=== PATIENT | female | born 1990 | race Caucasian/White ===

== ENCOUNTER 2017-07-21 10:34 | Emergency (ER) | payer SELFPAY ==
[~2017-07-21 10:34] MED LIST: ACET-1966 PO; HYDR-2954 PO; IBU600 PO; IBUP200C71 PO; IBUP600T22 PO; LEV25 PO; LEVO125T77 PO; LEVO200T44 PO; LOR5 PO; OXYC-865 PO; PER PO
--- NOTE | 2017-07-21 10:44 | ER Report ---
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 Patient is a nonsmoker she has no prior cardiac history no history of prior DVT or pulmonary embolism. Patient denies fevers or chills she denies productive cough she denies nausea vomiting or abdominal pain. REVIEW OF SYSTEMS: Constitutional: No fever, no chills. Eyes: No discharge. ENT: No sore throat. Cardiovascular: Chest tightness, no palpitations Respiratory: No cough, no shortness of breath. Gastrointestinal: No abdominal pain, no vomiting. Genitourinary: No hematuria. Musculoskeletal: No back pain. Skin: No rashes. Neurological: No headache. Allergies: Coded Allergies: Sulfa (Sulfonamide Antibiotics) (Verified Allergy, Unknown, 03/24/15) hydrocodone (Verified Allergy, Unknown, 03/24/15) Home Meds Discontinued Reported Medications Levothyroxine Sodium (SYNTHROID) 125 Mcg Tablet, 125 MCG PO QDAY 03/24/15 Past Medical/Surgical History hypothyroidism Hx Smoking: Yes (Endoclear) Smoking Status: Former Smoker Hx Substance Use Disorder: No Hx Alcohol Use: Yes (occ) Constitutional Vital Sign - Last 24 Hours 07/21/17 07/21/17 07/21/17 07/21/17 10:34 10:39 10:44 10:49 Temp 98.7 Pulse ??? 87 91 Resp 22 12 B/P (MAP) 119/94 119/94 (102) Pulse Ox 97 90 O2 Delivery Room Air 07/21/17 07/21/17 07/21/17 07/21/17 11:00 11:04 11:19 11:30 Pulse 58 ??? B/P (MAP) 84/53 (63) 109/40 (63) 07/21/17 07/21/17 07/21/17 07/21/17 11:34 11:49 12:00 12:04 Pulse 61 66 58 Resp 16 11 5 B/P (MAP) 103/67 (79) Pulse Ox 97 91 98 07/21/17 07/21/17 07/21/17 12:17 12:19 12:22 Pulse 65 Resp 18 B/P (MAP) 88/72 (77) 102/84 (90) 92/55 (67) Pulse Ox 98 Physical Exam General Appearance: The patient is alert, has no immediate need for airway protection and no signs of toxicity. Eyes: Pupils equal and round no pallor or injection. ENT, Mouth: Mucous membranes are moist. Respiratory: There are no retractions, lungs are clear to auscultation. Cardiovascular: Regular rate and rhythm. [ ] Gastrointestinal: Abdomen is soft and non tender, no masses, bowel sounds normal. Neurological: Awake alert Skin: Warm and dry, no rashes. Musculoskeletal: Neck is supple non tender. Extremities are nontender, nonswollen and have full range of motion. Medical Decision Making Data Points Result Diagram: 07/21/17 1102 07/21/17 1102 Laboratory Hematology Test 07/21/17 11:02 Red Blood Count 3.89 M/uL (4.17-5.56) Mean Corpuscular Volume 99.4 fL (80.0-96.0) Mean Corpuscular Hemoglobin 34.9 pg (26.0-33.0) Mean Corpuscular Hemoglobin Concent 35.1 g/dL (32.0-36.0) Red Cell Distribution Width 13.3 % (11.5-14.5) Mean Platelet Volume 9.3 fL (7.2-11.1) Neutrophils (%) (Auto) 56.8 % (39.4-72.5) Lymphocytes (%) (Auto) 36.2 % (17.6-49.6) Monocytes (%) (Auto) 5.9 % (4.1-12.4) Eosinophils (%) (Auto) 0.9 % (0.4-6.7) Basophils (%) (Auto) 0.2 % (0.3-1.4) Nucleated RBC Relative Count (auto) 0.1 /100WBC Neutrophils # (Auto) 3.5 K/uL (2.0-7.4) Lymphocytes # (Auto) 2.2 K/uL (1.3-3.6) Monocytes # (Auto) 0.4 K/uL (0.3-1.0) Eosinophils # (Auto) 0.1 K/uL (0.0-0.5) Basophils # (Auto) 0.0 K/uL (0.0-0.1) Nucleated RBC Absolute Count (auto) 0.01 K/uL Prothrombin Time 15.0 seconds (12.0-14.4) Prothromb Time International Ratio 1.17 Activated Partial Thromboplast Time 41 seconds (23-35) D-Dimer Quantitative (PE/DVT) < 0.27 ug/ml (0-0.50) Sodium Level 138 mmol/L (137-145) Potassium Level 3.6 mmol/L (3.5-5.0) Chloride Level 102 mmol/L (98-107) Carbon Dioxide Level 24 mmol/L (22-31) Blood Urea Nitrogen 12 mg/dl (7-18) Creatinine 0.90 mg/dl (0.52-1.04) Glomerular Filtration Rate Calc > 60.0 Random Glucose 79 mg/dl (75-110) Calcium Level 9.7 mg/dl (8.4-10.2) Total Bilirubin 1.2 mg/dl (0.2-1.3) Aspartate Amino Transf (AST/SGOT) 33 U/L (0-35) Alanine Aminotransferase (ALT/SGPT) 43 U/L (0-56) Alkaline Phosphatase 55 U/L (0-126) Troponin I < 0.012 ng/ml Total Protein 8.2 gm/dl (6.3-8.2) Albumin 4.8 g/dl (3.5-5.0) Thyroid Stimulating Hormone (TSH) 196.00 uIU/ml (0.46-4.68) Human Chorionic Gonadotropin, Qual Negative (NEGATIVE) Chemistry Test 07/21/17 11:02 White Blood Count 6.2 k/uL (4.5-11.0) Red Blood Count 3.89 M/uL (4.17-5.56) Hemoglobin 13.5 g/dL (12.0-16.0) Hematocrit 38.6 % (34.0-47.0) Mean Corpuscular Volume 99.4 fL (80.0-96.0) Mean Corpuscular Hemoglobin 34.9 pg (26.0-33.0) Mean Corpuscular Hemoglobin Concent 35.1 g/dL (32.0-36.0) Red Cell Distribution Width 13.3 % (11.5-14.5) Platelet Count 164 K/uL (150-450) Mean Platelet Volume 9.3 fL (7.2-11.1) Neutrophils (%) (Auto) 56.8 % (39.4-72.5) Lymphocytes (%) (Auto) 36.2 % (17.6-49.6) Monocytes (%) (Auto) 5.9 % (4.1-12.4) Eosinophils (%) (Auto) 0.9 % (0.4-6.7) Basophils (%) (Auto) 0.2 % (0.3-1.4) Nucleated RBC Relative Count (auto) 0.1 /100WBC Neutrophils # (Auto) 3.5 K/uL (2.0-7.4) Lymphocytes # (Auto) 2.2 K/uL (1.3-3.6) Monocytes # (Auto) 0.4 K/uL (0.3-1.0) Eosinophils # (Auto) 0.1 K/uL (0.0-0.5) Basophils # (Auto) 0.0 K/uL (0.0-0.1) Nucleated RBC Absolute Count (auto) 0.01 K/uL Prothrombin Time 15.0 seconds (12.0-14.4) Prothromb Time International Ratio 1.17 Activated Partial Thromboplast Time 41 seconds (23-35) D-Dimer Quantitative (PE/DVT) < 0.27 ug/ml (0-0.50) Glomerular Filtration Rate Calc > 60.0 Calcium Level 9.7 mg/dl (8.4-10.2) Total Bilirubin 1.2 mg/dl (0.2-1.3) Aspartate Amino Transf (AST/SGOT) 33 U/L (0-35) Alanine Aminotransferase (ALT/SGPT) 43 U/L (0-56) Alkaline Phosphatase 55 U/L (0-126) Troponin I < 0.012 ng/ml Total Protein 8.2 gm/dl (6.3-8.2) Albumin 4.8 g/dl (3.5-5.0) Thyroid Stimulating Hormone (TSH) 196.00 uIU/ml (0.46-4.68) Human Chorionic Gonadotropin, Qual Negative (NEGATIVE) Coagulation Test 07/21/17 11:02 Prothrombin Time 15.0 seconds Prothromb Time International Ratio 1.17 Activated Partial Thromboplast Time 41 seconds D-Dimer Quantitative (PE/DVT) < 0.27 ug/ml EKG/Imaging EKG Interpretation EKG shows sinus rhythm with ventricular rate of 62 bpm there is some evidence of T-wave inversion in leads II, III, and F aVF there is no prior EKG to compare to. Imaging [place]ACILITY[place] [facility] [place]IENT NAME: Daphnie Bean : 1990 MR: [id number] V: [id number] EXAM DATE: ORDERING PHYSICIAN: NIKKI SMITH TECHNOLOGIST: Location: [facility] Patient: Daphnie Bean : 1990 Visit/Account:[id number] Date of Sevice: 07/21/2017 2 VIEWS CHEST INDICATION: Chest pain and left arm numbness. COMPARISON: None available FINDINGS: Cardiomediastinal silhouette and pulmonary vessels within normal limits. There is no focal infiltrate or lobar consolidation. There is no pneumothorax or pleural effusion. No nodule. Upper abdomen is unremarkable. No acute bony abnormality. IMPRESSION: 1. No acute cardiopulmonary process. Report Dictated By: Krystian Gou at 07/21/2017 11:57 AM Report E-Signed By: Krystian Guo at 07/21/2017 11:58 AM WSN:[id number] ED Course/Re-evaluation ED Course 07/21/2017 11:09:34 am and at this time will be to perform a cardiac workup including d-dimer and troponin. Decision to Disposition Date: Jul 21, 2017 Decision to Disposition Time: 12:12 Depart Departure Latest Vital Signs Vital Signs Date Time Temp Pulse Resp B/P (MAP) Pulse Ox O2 Delivery O2 Flow Rate FiO2 07/21/17 12:22 92/55 (67) 07/21/17 12:19 65 18 98 07/21/17 10:39 98.7 Room Air Impression: Primary Impression: Chest pain Condition: Improved Disposition: HOME OR SELF-CARE Referrals: KRISHAN BROWER (PCP) New Scripts No Active Prescriptions or Reported Meds Patient Instructions: Chest Wall Pain (GEN) Problem Qualifiers Primary Impression: Chest pain Chest pain type: unspecified Qualified Codes: R07.9 - Chest pain, unspecified NIKKI SMITH MD Jul 21, 2017 10:44
--- NOTE | 2017-07-21 11:00 | EKG ---
FACILITY: [facility] - [place] PATIENT NAME: STEPHANIE DHALIWAL : [id number] MR: [id number] V: [id number] EXAM DATE: ORDERING PHYSICIAN: NIKKI SMITH TECHNOLOGIST: Ga Messer Reason : Blood Pressure : / mmHG Vent. Rate : 062 BPM Atrial Rate : 062 BPM P-R Int : 170 ms QRS Dur : 082 ms QT Int : 400 ms P-R-T Axes : 049 058 -63 degrees QTc Int : 406 ms Normal sinus rhythm Much baseline artifact Possible Lateral infarct , age undetermined T wave abnormality, consider inferior ischemia No previous ECGs available Confirmed by KHARI BRAGG ([id number] on 07/21/2017 7:14:30 PM Referred By: Confirmed By:KHARI BRAGG
[2017-07-21 11:12] LABS: PLATELET COUNT, AUTOMATED 164 K/uL (150-450)
[2017-07-21 11:21] LABS: INR 1.17
[2017-07-21] MEDS ORDERED: KETOROLAC 15 MG/ML VIAL IVP ONE (11:30)
--- NOTE | 2017-07-21 12:02 | RADIOLOGY IMAGING REPORT ---
FACILITY: [facility] PATIENT NAME: Daphnie Bean : 1990 MR: [id number] V: [id number] EXAM DATE: ORDERING PHYSICIAN: NIKKI SMITH TECHNOLOGIST: [place] [facility] [place]: Daphnie Bean : 1990 Visit/Account:[id number] Date of Sevice: 07/21/2017 2 VIEWS CHEST INDICATION: Chest pain and left arm numbness. COMPARISON: None available FINDINGS: Cardiomediastinal silhouette and pulmonary vessels within normal limits. There is no focal infiltrate or lobar consolidation. There is no pneumothorax or pleural effusion. No nodule. Upper abdomen is unremarkable. No acute bony abnormality. IMPRESSION: 1. No acute cardiopulmonary process. Report Dictated By: Krystian Guo at 07/21/2017 11:57 AM Report E-Signed By: Krystian Guo at 07/21/2017 11:58 AM WSN:[id number]
[2017-07-21 12:22] VITALS: BP 92/55
== END 2017-07-21 12:41 | disposition home or self-care (01) ==
LOC: ER 10:40
DX: R07.89 Other chest pain (principal)
CPT/HCPCS: 71046; 84443; 84484; 84703; 85025; 85379; 85610; 85730; 93005; 96374; 99284; J1885; 82040; 82247; 82310; 82374; 82435; 82565; 82947; 84075; 84132; 84155; 84295; 84450; 84460; 84520